=== PATIENT | female | born 1960 ===

== ENCOUNTER 2016-09-10 06:03 | Day surgery (SDC) | payer MEDICAID ==
[2016-09-07 10:53] VITALS: BMI 29.9
--- NOTE | 2016-09-10 06:40 | CP.SDSHP ---
Same Day Surgery H & P - History Proposed Procedure: right ankle arthroscopy with debridement Pre-Op Diagnosis: right ankle synovitis and arthritis - Previous Medical/Surgical History Cardiac: Hypertension Pain: 4.Moderate Pain Previous Surgical History: right foot surgery x2, cesarian x2 - Allergies Allergies: Allergies No Known Allergies Allergy (Verified 08/07/15 06:26) - Physical Exam Vital Signs: Vital Signs 09/10/16 09/10/16 06:25 06:28 Temperature 97.7 F Pulse Rate 75 75 Respiratory 18 Rate Blood Pressure 160/95 H O2 Sat by Pulse 100 Oximetry Mental Status: Alert & Oriented x3 Neuro: WNL Heart: WNL Lungs: WNL GI: WNL - {Optional Preform as Required} Integument: WNL Ortho: Other (pain on palpation to lateral ankle ligaments) - Impression Impression: Pt was seen and examined in [facility]. Pt NPO status was confirmed. All Pre-op testing and clearance was in the chart. Pt has exhausted all conservative treatment at this time and is opting for surgical intervention. Pt was explained procedure and post-operative course. All pt's questions were answered to satisfaction. No guarantees were made. Pt understands all risks, benefits and complications of procedure. Pt will follow-up with Dr. Mireles - Date & Time Date: 09/10/16 Time: 06:40 Short Stay Discharge - Short Stay Discharge Admitting Diagnosis/Reason for Visit: M67.371 Disposition: HOME/ ROUTINE Referrals: Wellington Castellano MD [Primary Care Provider] - Additional Instructions (Diet, Activity): Patient is to be full weightbearing in CAM walker Keep dressing clean, dry and intact Patient is to take pain medication as prescribed Patient is to follow up with Dr. Mireles in one week at his office. Patient is to ice and elevate limb. Progress Note/Discharge Note with Instructions: - Patient evaluated bedside in recovery s/p surgical procedure. - After surgical procedure patient in NAD - (+) Void, (+) Appetite - Capillary refill time <3s and NVSI intact. - Patient denies complaints at this time - Post operative instructions and plan of care explained to patient at length. - Pt. acknowledges understanding. - Patient stable for DC per podiatric surgery
[2016-09-10] MEDS ORDERED: Propofol 10 mg/ml Inj (20 ML) ONE (07:14)
[2016-09-10] MEDS ORDERED: ePHEDrine 50 mg/ml Inj ONE (07:14)
[2016-09-10] MEDS ORDERED: Midazolam 2 MG/2 ML VIAL ONE (07:14)
[2016-09-10] MEDS ORDERED: Rocuronium 10 mg/ml (5 ml) ONE (07:14)
[2016-09-10] MEDS ORDERED: Bupivacaine 0.5% Inj(30mL) ONE ×2 (07:17→09:09)
[2016-09-10] MEDS ORDERED: Dexamethasone 4 mg/1 ml ONE ×2 (07:17→07:56)
[2016-09-10] MEDS ORDERED: Lidocaine 1% Inj (20ml) ONE (07:17)
[2016-09-10] MEDS ORDERED: Succinylcholine 200 mg/10 ml Inj IV ONE (07:21)
[2016-09-10] MEDS ORDERED: Bupivacaine 0.25%-Epinephrine 1:200,000 (30 ml) Inj ONE ×2 (07:22→07:26)
[2016-09-10] MEDS ORDERED: MethylPREDNISolone Depo 40 mg/ml Inj ONE (07:35)
[2016-09-10] MEDS ORDERED: Lactated Ringer's 1,000 ML IV ONE (07:45)
[2016-09-10] MEDS ORDERED: Ropivacaine 0.5% 30ML IV ONE (08:04)
[2016-09-10] MEDS ORDERED: Neostigmine Methylsulfate 2 MG/2 ML ML IV ONE (08:46)
[2016-09-10 09:39] LABS: PARTIAL THROMBOPLASTIN TIME 27.1 SECONDS (23.3-32.5)
--- NOTE | 2016-09-10 09:42 | CP.PCM.PN ---
Subjective - Date & Time of Evaluation Date of Evaluation: 09/10/16 Time of Evaluation: 07:00 - Subjective Subjective: 55 y/o female preents to [facility] for painful right ankle. Patient denies any recent trauma. Patient states that she mostly experiences the pain on the lateral aspect of her ankle and that the pain increases with physical activity. Patient states that the pain is now affecting the way she ambulates and is requesting surgical intervention. She denies any nausea, vomiting, fever or chills. Objective - Vital Signs/Intake and Output Vital Signs (last 24 hours): Temp Pulse Resp BP Pulse Ox 97.7 F 75 18 160/95 H 100 09/10/16 06:25 09/10/16 06:28 09/10/16 06:25 09/10/16 06:25 09/10/16 06:25 Intake and Output: 09/10/16 09/10/16 06:59 18:59 Intake Total 600 Balance 600 - Additional Findings Additional findings: Patient presents to [facility] ambulating in athletic shoes without assistance. Vascular: DP and PT pulses palpable 2/4. CFT < 3 seconds to all distal digits. Pedal hair growth noted. Skin temperature is warm to warm from proximal to distal. Neuro: Pain sensation intact. Derm: No open lesions noted. Biomech/Musc: Patient presents with antalgic gait, with limp to RLE. Patient presents with decrease in right shoulder height and increase in right hip height. Patient has early heel off to right lower extremity. Dorsiflexion is decreased to Right ankle joint compared to left with knee both extended and flexed. Pain is noted with palpation of right Achilles tendon. No pain with palpation of left Achilles tendon. With inversion and eversion of right foot on the ankle patient presents with pain and decreased inversion, with guarding. Muscle strength is 4/ 5 for inverters and everters. Dorsiflexors and plantarflexors show 5/5 muscle strength. Pain with palpation of peroneal tendons as well as pain with active eversion. Pain with palpation of anterior lateral ankle joint. MTJ ROM is full. RCSP is 4 degrees everted and NCSP is 2 degrees everted. STJ ROM is 20:10 Inversion to eversion. MTJ ROM is full without pain or crepitus. No hypermobility noted to 1st metatarso-cuneiform joint. Forefoot is rectus to rear foot. Flexible contracture noted to digits 2-5. Assessment and Plan - Assessment and Plan (Free Text) Assessment: 56 y/o female presents to [facility] for surgical intervention of painful ankle joint -Pt was seen and examined in [facility]. - Biomechanical exam performed. - Pt NPO status was confirmed. - All Pre-op testing and clearance was in the chart. - Pt has exhausted all conservative treatment at this time and is opting for surgical intervention. - Pt was explained procedure and post-operative course. - All pt's questions were answered to satisfaction. - No guarantees were made. - Pt understands all risks, benefits and complications of procedure. - Pt will follow-up with Dr. Mireles
[2016-09-10] MEDS ORDERED: HYDROmorphone 0.5 mg/0.5 ml ISec IVP PRN (09:44)
--- NOTE | 2016-09-10 09:44 | PCM.SURG1 ---
Surgeon's Initial Post Op Note - Surgeon's Notes Surgeon: Chi AUSTIN Student Outreach Coordinator: Zenobia PGY3, Netta PGY1 Type of Anesthesia: General LMA Pre-Operative Diagnosis: Right ankle synovitis and arthritis Operative Findings: See dictation Post-Operative Diagnosis: Right ankle arthritis and synovitis. OCD lesion, right lateral talus Operation Performed: Right ankle arthroscopy with debridement Specimen/Specimens Removed: None Estimated Blood Loss: EBL {In ML}: 10 Blood Products Given: N/A Drains Used: No Drains Post-Op Condition: Good Date of Surgery/Procedure: 09/10/16 Time of Surgery/Procedure: 07:35
[2016-09-10] MEDS ORDERED: Lactated Ringer's 1,000 ML IV SCH (09:45)
--- NOTE | 2016-09-10 10:19 | OP ---
PROCEDURE DATE: 09/10/2016 SURGEON: Freddy Dos Santos DPM SECURITY SERGEANT: Zenobia, PGY-3 SECOND MACHINE WOODWORKING SANDER: Netta PGY-1 ANESTHESIA: General anesthesia with popliteal block. PREOPERATIVE DIAGNOSES: Right ankle arthritis and synovitis. POSTOPERATIVE DIAGNOSES: 1. Right ankle synovitis and arthritis. 2. Osteochondral defect, right talus. PROCEDURE: Right ankle diagnostic and therapeutic ankle arthroscopy with debridement of hypertrophic synovium and arthritis. INDICATIONS: The patient is a 55-year-old female with the above mentioned diagnosis. The patient has exhausted all conservative treatment at this time and is now requesting surgical intervention. The patient signed the consent after careful explanation of all risks, benefits, complications and alternatives to the surgical procedure. No guarantees were given nor implied. PREPARATION: The patient was brought into the operating room, placed on the operating room table in the supine position. After induction of general anesthesia, a well-padded pneumatic thigh tourniquet was applied to patient's right thigh. After application of the tourniquet, the patient's right lower extremity was then prepped and draped in the usual sterile manner. At this time , the patient's right lower extremity was exsanguinated with Esmarch and the pneumatic thigh tourniquet was inflated to 350 mmHg and the procedure began. PROCEDURE #1: RIGHT ANKLE DIAGNOSTIC AND THERAPEUTIC ANKLE ARTHROSCOPY WITH DEBRIDEMENT OF HYPERTROPHIC SYNOVIUM AND ARTHRITIS: Attention was directed to the anterior aspect of the patient's right ankle where the anterior ankle anatomy was identified along with the medial and lateral gutters at the level of the ankle joint. Approximately 20 mL of 0.5% Marcaine plain with epinephrine was utilized to insufflate the ankle joint with an 18 gauge needle. A #15 blade was utilized to create a portal overlying the medial gutter of the right ankle. With the use of a hemostat, blunt dissection was carried down to the level of the joint capsule. The cannula along with the obturator was utilized to penetrate the right ankle capsule, and the arthroscopy camera was placed within the cannula to allow for visualization within the ankle joint. Upon inspection of the right ankle joint, there was significant hypertrophic synovium visualized along with fibrous bands. Minimal arthritic changes were noted. Upon inspection of the articular cartilage, an osteochondral defect was noted to the anterior lateral shoulder of the talus. The defect measured approximately 2 cm x 2 cm. Upon inspection of the anterior talofibular ligament , it was noted to be intact. At this time, the camera was brought across to the lateral aspect of the patient 's ankle joint which was transilluminated, and the lateral portal was created at the level of the ankle joint in a similar fashion of the medial portal. At this time, the 3.5 mm aggressive shaver was introduced into the lateral portal and the lateral gutter as well as the anterior ankle joint was debrided. Next, the arthroscope and a 3.5 aggressive shaver switched portals and debridement of the medial aspect of the ankle joint was performed. At this time, the right ankle joint was then copiously irrigated with normal sterile saline. The arthroscope along with the shaver were then removed and the portal sites were reapproximated and coapted utilizing 4-0 nylon in a simple interrupted suture fashion. The patient received a postoperative injection of 10 mL of 0.5% Marcaine plain in local block fashion to the ankle joint itself as well as to the medial aspect of ankle for the saphenous nerve block. The patient also received an injection of 2 mL of dexamethasone. Incision sites were dressed with Xeroform and dry sterile dressing and an Christopher bandage. POSTOPERATIVE CONDITION: The patient tolerated the procedure and anesthesia well and was escorted to recovery with all vital signs stable and neurovascular status intact to the patient's right ankle. It is to be noted that the patient will be full weightbearing in a Cam walker and will follow up with Dr. Dos Santos in his office in 1 week. Zahra Maurer DPM Freddy Dos Santos DPM cc: [id number] TT: 09/10/2016 10:18:27 sung GILLIAM
[2016-09-10 11:58] VITALS: RESP 18
[2016-09-10 13:07] VITALS: BP 101/68; PULSE 85; TEMP 97.8; O2SAT 97
== END 2016-09-10 13:31 | disposition home or self-care (01) ==
LOC: H.OPSURG 06:03
PROVIDERS: ATTEND Podiatrist Foot & Ankle Surgery
DX: M67.371 Transient synovitis, right ankle and foot (principal); I10 Essential (primary) hypertension